=== PATIENT | female | born 1985 | race Native Hawaiian/Other Pacific Islander ===

== ENCOUNTER 2019-05-18 16:04 | Observation (INO) | payer OTHER ==
[~2019-05-18] VITALS: Ht 162.6 cm; Wt 56.2 kg
[~2019-05-18 16:04] MED LIST: NEXIUM40 M1 PO
[2019-05-18 16:10] VITALS: BP 131/89; TEMP 97.9
[2019-05-18 20:16] LABS: PLATELET COUNT 238 K/uL (152-353)
[2019-05-18 20:29] LABS: POTASSIUM 3.6 mmol/L (3.6-5.2)
[2019-05-18 21:01] VITALS: BP 97/54
[2019-05-18 23:46] VITALS: BP 131/83; TEMP 97.9; Ht 162.6 cm; Wt 56.2 kg
[2019-05-19 04:00] VITALS: BP 96/50; TEMP 97.8
[2019-05-19 08:00] VITALS: BP 111/60; TEMP 97.8
[2019-05-19 12:00] VITALS: BP 111/64; TEMP 97.5
[2019-05-19 16:00] VITALS: BP 112/65; TEMP 98.3
[2019-05-19 20:00] VITALS: BP 107/66; TEMP 98.2
[2019-05-20] VITALS: BP 113/67; TEMP 98.1
[2019-05-20 04:00] VITALS: BP 113/72; TEMP 97.9
[2019-05-20 08:00] VITALS: BP 117/72; TEMP 98.3
== END 2019-05-20 09:43 | disposition home or self-care (01) ==
LOC: ED 16:04 → MED/SURG 21:30
PROVIDERS: Emergency Medicine; ADMIT Internal Medicine
DX: R11.2 Nausea with vomiting, unspecified (principal); R10.13 Epigastric pain; K21.9 Gastro-esophageal reflux disease without esophagitis
CPT/HCPCS: 36416; 80053; 80307; 81000; 82150; 83690; 85027; 87502; 87651; 96360; 96372; 99220; 99284; G0378; J2405; J3490

== ENCOUNTER 2019-05-26 07:35 | Day surgery (SDC) | payer OTHER | END 2019-05-26 09:30 | disposition home or self-care (01) | LOC: OR 07:35 | DX: Z53.8 Procedure and treatment not carried out for other reasons (principal); K21.9 Gastro-esophageal reflux disease without esophagitis; R11.0 Nausea; R10.13 Epigastric pain | CPT/HCPCS: 81025 ==

== ENCOUNTER 2021-05-25 12:57 | Emergency (ER) | payer OTHER ==
[~2021-05-25] VITALS: Ht 162.6 cm; Wt 52.2 kg
[2021-05-25 14:05] LABS: POTASSIUM 4.2 mmol/L (3.6-5.2); SODIUM 132 mmol/L (136-145)
[2021-05-25 14:40] LABS: PLATELET COUNT 206 K/uL (152-353)
[2021-05-25 15:16] VITALS: BP 120/78; TEMP 99
== END 2021-05-25 15:20 | disposition home or self-care (01) ==
LOC: ED 12:57
PROVIDERS: Hospitalist
DX: J06.9 Acute upper respiratory infection, unspecified (principal); R09.1 Pleurisy; R50.9 Fever, unspecified; Z20.822 Contact with and (suspected) exposure to COVID-19; F17.210 Nicotine dependence, cigarettes, uncomplicated
CPT/HCPCS: 80053; 82550; 83880; 84484; 85027; 85379; 87635; 87651; 93005; 96372; 99283; J1100; J1885; U0003